=== PATIENT | male | born 1990 | race Two or more races ===

== ENCOUNTER 2018-05-07 01:46 | Emergency (ER) | payer MEDICAID ==
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
--- NOTE | 2018-05-07 06:20 | ED PDOC ---
ED Additional Note - Date & Time of Evaluation Date of Evaluation: 05/07/18 - Physician Additional Note Physician Additional Note: 7:00 Patient is signed out by me to Santi Fleming MD pending sobriety and reevaluation. Scribe Attestation: Documented bySeema Brody, acting as a scribe for Colby Wisdom MD. Provider Scribe Attestation: All medical record entries made by the Scribe were at my direction and personally dictated by me. I have reviewed the chart and agree that the record accurately reflects my personal performance of the history, physical exam, m edical decision making, and the department course for this patient. I have also personally directed, reviewed, and agree with the discharge instructions and disposition.
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
[2018-05-07 13:47] VITALS: O2SAT 100
[2018-05-07 14:27] VITALS: BP 124/82; PULSE 85; RESP 16; TEMP 98.3
== END 2018-05-07 14:00 | disposition home or self-care (01) ==
LOC: H.ER 01:46
DX: F10.129 Alcohol abuse with intoxication, unspecified (principal); S00.83XA Contusion of other part of head, initial encounter; Y04.0XXA Assault by unarmed brawl or fight, initial encounter; Y92.89 Other specified places as the place of occurrence of the external cause
CPT/HCPCS: 70450; 70486; 82948; 96372; 99285; G0480; J1630; J2060

== ENCOUNTER 2018-09-03 02:19 | Emergency (ER) | payer MEDICAID, OTHER ==
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
[2018-09-03 05:00] VITALS: BP 124/88; PULSE 70; RESP 16; TEMP 97.9; O2SAT 99
== END 2018-09-03 03:20 | disposition home or self-care (01) ==
LOC: H.ER 02:19
DX: F10.129 Alcohol abuse with intoxication, unspecified (principal); S69.91XA Unspecified injury of right wrist, hand and finger(s), initial encounter; X58.XXXA Exposure to other specified factors, initial encounter